=== PATIENT | male | born 1975 | race African-American/Black ===

== ENCOUNTER 2020-06-30 16:34 | Emergency (ER) | payer MEDICAID, SELFPAY ==
[~2020-06-30] VITALS: Ht 195.6 cm; Wt 113.6 kg
[2020-06-30] MEDS ORDERED: CloNIDine HCL 0.1 MG TABLET PO ONE (17:15)
[2020-06-30 18:03] VITALS: BP 148/73
== END 2020-06-30 18:35 | disposition home or self-care (01) ==
LOC: EMS 16:34
DX: I10 Essential (primary) hypertension (principal); F19.10 Other psychoactive substance abuse, uncomplicated; F11.90 Opioid use, unspecified, uncomplicated; F14.90 Cocaine use, unspecified, uncomplicated

== ENCOUNTER 2024-01-29 15:03 | Emergency (ER) | payer MEDICAID ==
[~2024-01-29] VITALS: Ht 188 cm; Wt 100.0 kg
[2024-01-29 15:19] VITALS: TEMP 98.5
[2024-01-29] MEDS: SODIUM CHLORIDE 0.9% 1,000 ML IV ONE (15:30)
[2024-01-29] MEDS: LORazepam 2 MG/ML VIAL IM ONE (15:38)
[2024-01-29] MEDS: HALOPERIDOL LACTATE 5 MG/ML VIAL IM ONE (15:38)
[2024-01-29] MEDS: DiphenhydrAMINE HCL 50 MG/ML VIAL IM ONE (15:39)
[2024-01-29 17:27] LABS: BASOPHILS % (AUTO) 0.2 % (0.0-2.0); EOSINOPHILS % (AUTO) 0.2 % (1.0-6.0); HEMOGLOBIN 13.4 g/dL (13.5-17.5); LYMPHOCYTES # (AUTO) 1.1 K/uL (1.0-4.8); LYMPHOCYTES % (AUTO) 14.6 % (22.0-44.0); MEAN CORPUSCULAR HEMOGLOBIN 31.6 pg (26.0-34.0); MEAN CORPUSCULAR HGB CONC 33.4 G/dL (31.0-37.0); MEAN CORPUSCULAR VOLUME 95 fL (80-100); MONOCYTES # (AUTO) 0.5 K/uL (0.1-1.0); MONOCYTES % (AUTO) 7.4 % (2.0-9.0); NEUTROPHILS # (AUTO) 5.6 K/uL (1.8-7.7); NEUTROPHILS % (AUTO) 77.6 % (40.0-70.0); PLATELET COUNT (AUTO) 216 K/uL (150-450); RED BLOOD CELL COUNT(AUTO) 4.23 MIL/uL (4.50-5.90); RED CELL DISTRIBUTION WIDTH 13.5 % (11.5-14.5); WHITE BLOOD COUNT (AUTO) 7.2 K/uL (4.5-11.0)
[2024-01-29 17:38] LABS: ANION GAP 13 mmol/L (8-16); CALCIUM, TOTAL 8.8 mg/dL (8.8-10.5); CARBON DIOXIDE 26 mmol/L (22-29); CHLORIDE 101 mmol/L (98-107); CREATININE 0.98 mg/dL (0.60-1.30); GLOMERULAR FILTR. RATE CALC > 60 mL/min (>60); GLUCOSE,RANDOM 176 mg/dL (70-110); POTASSIUM 3.3 mmol/L (3.5-5.1); SODIUM SERUM 140 mmol/L (136-145); UREA NITROGEN, BLOOD 10 mg/dL (7-18)
[2024-01-29 18:04] LABS: ALANINE AMINOTRANSFERASE 29 U/L (12-78); ALBUMIN 3.4 g/dL (3.4-5.0); ALKALINE PHOSPHATASE 86 U/L (46-116); ASPARTATE AMINOTRANSFERASE 26 U/L (15-37); BILIRUBIN,TOTAL 1.1 mg/dL (0.1-1.0); CREATINE KINASE, TOTAL ONLY 599 U/L (39-308); TOTAL PROTEIN, SERUM 6.6 g/dL (6.4-8.2)
[2024-01-29 18:18] LABS: ALCOHOL, BLOOD (SERUM) < 3 mg/dL (0-10)
[2024-01-29] MEDS: NALOXONE HCL 1 MG/ML 2 ML SYRINGE IM ONE (19:19)
[2024-01-29 20:08] LABS: PH,URINE DRUG SCREEN 5.5 (5.0-8.0)
[2024-01-29 20:14] LABS: ALCOHOL, URINE DRUG SCREEN NEGATIVE (NEGATIVE); AMPHET/METH SCREEN,URINE NEGATIVE (NEGATIVE); BARBITURATE SCREEN, URINE NEGATIVE (NEGATIVE); BENZODIAZEPINES SCREEN,URINE NEGATIVE (NEGATIVE); CANNABINOID SCREEN,URINE NEGATIVE (NEGATIVE); COCAINE SCREEN,URINE NEGATIVE (NEGATIVE); METHADONE SCREEN, URINE NEGATIVE (NEGATIVE); OPIATE SCREEN,URINE NEGATIVE (NEGATIVE); PHENCYCLIDINE SCREEN,URINE POSITIVE (NEGATIVE)
[2024-01-29 20:32] VITALS: BP 131/71; PULSE 70; RESP 16
== END 2024-01-29 22:28 ==
LOC: EMS 15:04
DX: E87.6 Hypokalemia (principal); R45.1 Restlessness and agitation
CPT/HCPCS: 99285; 70450; 80048; 80076; 82550; 85025; 36415; 96372; 80307; G0480; J1200; J1630; J2060; J2310